=== PATIENT | female | born 1980 | race African-American/Black ===

== ENCOUNTER 2016-12-16 08:07 | Emergency (ER) | payer BC ==
[~2016-12-16 08:07] MED LIST: ALAVERT10 MG PO; ALBUTEROL5 INH; AMIT25 PO; BACDS PO; BENTYL20 PO; CLINDA150 PO; COMBIVENT INH; DUONEB IN; DUONEB INH; EPIVIR OR; FLEX PO; FLONASE NAS; FLOVENT44 INH; FLUCON150 PO; FLUCON2 PO; GGACUDL PO; ISENTRESS400 MG PO; LEVAQUIN5T PO; LEVAQUIN750 MG PO; LEXIVA OR; LORTAB 5 PO; MOMUD PO; MUCINEX PO; MUCINEX600 MG PO; NEBULIZER; NEUR300 PO; NORV5 PO; NYS500UDL PO; OXYCON10 PO; P10 PO; P20 PO; PCET PO; PERCOCET1 TA4 PO; PERFOROM INH; PRILOSEC40 MG PO; PROAIR HFA INH; PROTONIX PO; PROVENTSOL INH; PULRESP.5 INH; RETROVIR PO; ROBITUSSN DM OR; SEPTRA DS1 TAB PO; SINGULAIR1 PO; SPIRIVA INH; STERAPRED DS10 MG; STERAPRED DS10 MG PO; SYMBICORT 160/41 INH INH; TESS PO; TRIZIVIR PO; TRUVADA1 TAB OR; VALTREX5 PO; X5 PO; ZIAGEN 300 MG300 MG OR; [UNRECOGNIZED DRUG - OTHER] PO; [UNRECOGNIZED DRUG - REMARK]; [UNRECOGNIZED DRUG - REMARK] INH
[2016-12-16 08:47] LABS: BASOPHILS 0.1 %; BASOPHILS ABSOLUTE 0.01 10/3/uL (0.0-0.16); EOSINOPHILS 0.3 %; EOSINOPHILS ABSOLUTE 0.03 10/3/uL (0.0-0.53); HEMATOCRIT 44.5 % (36.0-48.0); HEMOGLOBIN 15.7 g/dL (12.0-16.0); IMMATURE GRANULOCYTES 0.2 %; IMMATURE GRANULOCYTES ABSOLUTE 0.02 10/3/uL (0.0-0.11); LYMPHOCYTES 5.3 %; LYMPHOCYTES ABSOLUTE 0.59 10/3/uL (0.67-4.30); MEAN CORPUS HGB CONC 35.3 g/dL (32.0-36.0); MEAN CORPUSCULAR HEMOGLOB 34.8 pg (26.0-34.0); MEAN CORPUSCULAR VOLUME 98.7 fL (80-100); MEAN PLATELET VOLUME 10.9 fL (9.2-13.0); MONOCYTES 2.3 %; MONOCYTES ABSOLUTE 0.26 10/3/uL (0.21-1.20); NEUTROPHILS 91.8 %; NEUTROPHILS ABSOLUTE 10.23 10/3/uL (2.02-8.40); PLATELET COUNT 229 10/3/uL (150-400); RBC DISTRIBUTION WIDTH 14.4 % (12.0-16.0); RED CELL COUNT 4.51 10/6/uL (4.0-5.6); WHITE BLOOD CELLS 11.1 10/3/uL (4.5-10.5)
[2016-12-16 08:48] LABS: MANUAL DIFF NO %
[2016-12-16 09:02] LABS: PROTIME (NOT ORD) 13.5 SEC (12.0-14.5)
[2016-12-16 09:03] LABS: ALBUMIN 3.7 G/DL (3.5-5.0); ALKALINE PHOSPHATASE 85 U/L (45-117); BUN (BLOOD UREA NITROGEN) 11 MG/DL (6-23); CALCIUM, SERUM 8.6 MG/DL (8.5-10.4); CHEST PAIN PROFILE TAT 0 Hrs 20 Mins; CHLORIDE, SERUM 110 MMOL/L (96-112); CO2 (CARBON DIOXIDE) 24 MMOL/L (24-34); CREATININE 0.72 MG/DL (0.55-1.02); DIRECT BILIRUBIN 0.1 MG/DL (0.0-0.4); GFR AFRICAN AMERICAN 123 ML/MIN (>=60); GFR NON AFRICAN AMERICAN 106 ML/MIN (>=60); GLUCOSE, SERUM 113 MG/DL (60-99); INDIRECT BILIRUBIN(NOT ORDER) 0.5 MG/DL (0.1-0.9); POTASSIUM, SERUM 3.9 MMOL/L (3.5-5.3); SGOT(AST) 13 U/L (5-40); SGPT(ALT) 19 U/L (5-65); SODIUM, SERUM 142 MMOL/L (135-148); TOTAL BILIRUBIN 0.6 MG/DL (0-1.2); TOTAL PROTEIN 7.1 G/DL (6.0-8.5); TROPONIN I <0.02 NG/ML (<0.05)
[2016-12-16 14:42] LABS: ASCORBIC ACID (UR NOT ORDER) NEG (NEG); BILIRUBIN, URINE NEGATIVE (NEG); KETONE, URINE TRACE MG/DL (NEG); LEUKOCYTE ESTERASE(NOT OR NEG (NEG); NITRITE (URINE) NEG (NEG); WBC (NOT ORDERED) (RFLEX) < 1 (0-5)
[2016-12-16 14:47] LABS: ER URINALYSIS TAT 1 Hrs 13 Mins
== END 2016-12-16 15:30 | disposition home or self-care (01) ==
LOC: ER 08:07
PROVIDERS: Emergency Medicine
DX: R10.13 Epigastric pain (principal); R10.10 Upper abdominal pain, unspecified; R53.1 Weakness; R07.9 Chest pain, unspecified; J45.909 Unspecified asthma, uncomplicated; K21.9 Gastro-esophageal reflux disease without esophagitis; Z21 Asymptomatic human immunodeficiency virus [HIV] infection status; Z91.012 Allergy to eggs; Z79.52 Long term (current) use of systemic steroids; Z79.899 Other long term (current) drug therapy
CPT/HCPCS: 71010; 74176; 80048; 80076; 81001; 83605; 83690; 83735; 84484; 84703; 85025; 85610; 85730; 87040; 93005; 96374; 96375; 99285; A9270-GY; J1170; J2405